=== PATIENT | female | born 1975 | race Caucasian/White ===

== ENCOUNTER 2017-12-14 14:25 | Emergency (ER) | payer MEDICAID, SELFPAY ==
--- NOTE | 2017-12-14 11:31 | EKG12_ITS ---
Test Reason : Blood Pressure : / mmHG Vent. Rate : 072 BPM Atrial Rate : 072 BPM P-R Int : 136 ms QRS Dur : 082 ms QT Int : 384 ms P-R-T Axes : 051 058 044 degrees QTc Int : 420 ms Normal sinus rhythm Normal ECG Reconfirmed by CARITO GUTIERRES, SOPHIE ([id number]), field map editor CHERIE CHAVEZ ([id number]) on 02/16/2018 11:00:54 AM Referred By: Vignesh Crum Confirmed By:SOPHIE ARZATE MD
--- NOTE | 2017-12-14 14:25 | DT_ITS ---
This patient was seen during an EMR downtime December 13, 2017 - December 20, 2017. This patient may have a combination of paper and electronic documentation or all paper documentation. All documentation is viewable within the e-chart portion of [facility] for each patient visit.
--- NOTE | 2017-12-14 16:10 | CT_ITS ---
STUDY: CT BRAIN WITHOUT CONTRAST REASON FOR EXAM: Female, 42 years old. Syncope. RADIATION DOSAGE (If Supplied By Facility): CTDIvol = ( 44.99 ) mGy, DLP = ( 748.30 ) mGycm TECHNIQUE: Transaxial CT imaging of the brain was performed without administration of intravenous contrast material. Individualized dose optimization techniques were used for this CT. COMPARISON: None. FINDINGS: Normal soft tissue structures. Normal calvarium. Normal size ventricles and extra-axial spaces for the patient's age. Normal white matter tracts of the cerebral hemispheres. Normal basal ganglia and thalami. Normal brainstem. Normal cerebellum. There is no intracranial hemorrhage. There are no findings of an acute ischemic infarction. Normal visualized paranasal sinuses. CT/Brain/Head without Contrast IMPRESSION: Normal unenhanced CT scan of the brain. No acute findings in the brain. Electronically Signed: Chris Padilla, at 0:13 EDT Tel , Service support ,
--- NOTE | 2017-12-14 16:30 | RAD_ITS ---
STUDY: X-RAY CHEST REASON FOR EXAM: Female, 42 years old. Syncope, headache, abdominal pain TECHNIQUE: PA and lateral views of the chest. COMPARISON: 09/08/2016 FINDINGS: The lungs are clear and expanded. There is no demonstrated pleural abnormality. Normal size heart. Normal mediastinum and erick. Normal visualized pulmonary arteries. Normal visualized aortic arch and descending thoracic aorta. Normal visualized thoracic spine. Normal visualized ribs, clavicles, and shoulders. There is no demonstrated abnormality of the visualized soft tissue structures of the upper abdomen. RAD/Chest PA and Lateral IMPRESSION: Normal x-ray examination of the chest. Electronically Signed: Deandre Baez DO at 9:38 EDT Tel , Service support ,
[2017-12-16 18:28] LABS: Bacteria 0 SEEN /hpf (None Seen); Color, Urine Yellow (Yellow); Glucose, Dipstick Normal (Normal); Ketone-Dipstick Negative (Negative); Leukocyte Esterase-Dipstick Negative /ul (Negative); Mucous, Urine 0 SEEN /hpf (<or=2+); Nitrite-Dipstick Negative (Negative); Occult Blood-Urine Negative /ul (Negative); Protein-Dipstick Negative (Negative); Red Blood Cells-Urine 0 SEEN /hpf (0-5); Specific Gravity, Urine 1.005 (1.002-1.030); Squamous Epithelial Cells - UA 5-10 SEEN /hpf (5-10); Urine Bilirubin Dipstick Negative (Negative); Urine Clarity Clear (Clear); Urine Urobilinogen Normal (Normal); White Blood Cells 0 SEEN /hpf (0-5)
[2017-12-17 09:30] LABS: Anion Gap 6 (5-15); BUN 7 mg/dL (7-18); BUN/Creat Ratio 10.4 RATIO (10-20); Calcium,Total 8.7 mg/dL (8.5-10.1); Chloride 108 mmol/L (98-107); Creatinine, Serum 0.67 mg/dL (0.55-1.02); EST Glomerular Filtration Rate 103 mL/min (>60); Est Glom Filt Rate - Afr Amer 125 mL/min (>60); Glucose 121 mg/dL (74-106); Lactic Acid 1.7 mmol/L (0.4-2.0); Potassium 4.1 mmol/L (3.5-5.1); Sodium Level 140 mmol/L (136-145)
[2017-12-17 11:11] LABS: Hematocrit 34.2 % (37-47); Hemoglobin 10.6 g/dl (12.0-15.0); Mean Corpuscular Hgb 25.1 pg (27.0-32.0); Red Blood Count 4.22 M/mm3 (4.2-5.4)
[2017-12-17 11:11] LABS: Internal QC Validated? YES +Cl - CLEAR BKGD; Pregnancy, Urine Negative Negative
[2017-12-17 11:12] LABS: Basophil% 0.3 % (0-1); Eosinophils% 0.9 % (0-5); Lymphocyte # 1.55 X10^3/ul (4.0); Lymphocyte % 22.1 % (19-41); Mean Platelet Vol. 10.3 fl (6.2-12.0); Monocyte% 5.6 % (0-10); Neutrophil # 4.98 X10^3/uL (2.7-7.7); POSITIVE COUNT NO; POSITIVE DIFFERENTIAL NO; POSITIVE MORPHOLOGY NO; Platelet Count 355 K/mm3 (150-450); RBC Distribution Width CV 15.4 % (11.6-14.6); RBC Distribution Width SD 45.2 fl (35.1-43.9)
[2017-12-17 11:13] LABS: Absolute Lymphocyte Count 1.55 X10^3/ul (0.83-4.51); Basophil# 0.02 X10^3/uL; Eosinophil# 0.06 X10^3/uL; Monocyte# 0.39 X10^3/uL
== END 2017-12-14 17:50 | disposition home or self-care (01) ==
LOC: ED 12-16 07:31
PROVIDERS: Emergency Provider Emergency Medicine; Family Provider Family Medicine Geriatric Medicine; PCP Family Medicine Geriatric Medicine
DX: R55 Syncope and collapse (principal); M79.7 Fibromyalgia; G25.81 Restless legs syndrome; Z79.899 Other long term (current) drug therapy; Z87.891 Personal history of nicotine dependence
CPT/HCPCS: 36415; 70450; 71046; 80048; 81001; 81025; 83605; 84484; 85025; 93005; 96360; 99284; J7030; A4216

== ENCOUNTER 2018-05-08 17:20 | Emergency (ER) | payer MEDICAID, SELFPAY ==
[2018-05-08 17:21] VITALS: BP 138/91; PULSE 81; RESP 16; TEMP 36.9; O2SAT 100; BMI 33.3
--- NOTE | 2018-05-08 17:43 | ED.VISSUMM ---
- ER Visit Summary Date of Service: 05/08/18 Chief Complaint: Dental pain History of Present Illness: The patient is a 43 F who presents with right upper dental and facial pain that has been getting progressively worse over the past week. Patient states the pain is throbbing. Patient states the pain is over the right upper molar area. Patient admits to subjective fevers. Patient admits to some jaw swelling. Patient admits to hot and cold sensitivity. Patient also admits to a mild headache. Patient admits to some nausea but denies any vomiting. Patient also states she has had recent cough and upper respiratory congestion. Patient states her children have had similar upper respiratory symptoms. Patient admits to some right ear pain and a sore throat. Patient states she also feels like she is getting a vaginal yeast infection. Patient denies any dysuria. Patient denies any discharge. Patient also states she feels like she is constipated. Physical Examination: Vital signs are stable. Patient is afebrile. Patient is in no acute distress. Oral mucosa is pink and moist. There is large dental carry over the right upper first molar. There is gingival edema around this tooth. There is no fluctuance or evidence of abscess. Oropharynx is clear. Airway is patent. Tympanic membranes are clear bilaterally. Neck is supple. Trachea is midline. There is no JVD noted. There is no sublingual edema noted. Heart was regular rate and rhythm. Lungs are clear and equal bilaterally. Abdomen is soft. There is no tenderness. Emergency Department Course and Treatment: Patient has a dental infection. Patient was given a prescription for clindamycin. Patient was also given a prescription for Diflucan but was instructed to wait until she completes the clindamycin prescription to take it since she will likely develop a vaginal candidiasis after completing the clindamycin. Patient was instructed to take inax-oaa-vloyjvc fiber supplements and stool softeners as needed for her constipation. Patient was instructed to follow-up with her dentist and primary care physician in 5-7 days. Patient understood and was agreeable with the plan. All questions were answered. Disposition: Discharge home Impression: 1. Infected dental caries 2. Upper respiratory infection 3. Constipation This note was generated with [employer] software. It may contain incorrect words, spelling, and punctuation that were not noted in review of the chart prior to signing ED Disposition - Plan for ED Patient: Disposition: Home or Assisted Living Chief Complaint: Dental Diagnosis: Infected dental caries, Upper respiratory infection with cough and congestion, Constipation Instructions: ED Abscess Dental, ED Constipation Prescriptions: Fluconazole [Diflucan] 150 mg PO X1 #1 tab Clindamycin HCl [Cleocin] 300 mg PO Q6H #40 cap Referrals: Lyle Leach Chi, MD [Primary Care Provider] -
--- NOTE | 2018-05-08 17:51 | ED.VISSUMM ---
- ER Visit Summary Date of Service: 05/08/18 Chief Complaint: [] History of Present Illness: The patient is a 43 F [] Physical Examination: [] Test Results: [] Emergency Department Course and Treatment: [] Treatment Plan: [] Disposition: [] Impression: [] This note was generated with [employer] dictation software. It may contain incorrect words, spelling, and punctuation that were not noted in review of the chart prior to signing ED Disposition - Plan for ED Patient: Disposition: Home or Assisted Living Chief Complaint: Dental Diagnosis: Infected dental caries, Upper respiratory infection with cough and congestion, Constipation Instructions: ED Constipation, ED Abscess Dental Prescriptions: Fluconazole [Diflucan] 150 mg PO X1 #1 tab Clindamycin HCl [Cleocin] 300 mg PO Q6H #40 cap Referrals: Lyle Leach Chi, MD [Primary Care Provider] -
[2018-05-08] MEDS: Clindamycin HCl 150 MG Capsule 300 MG PO (18:14)
[2018-05-08] MEDS: Naproxen 250 MG Tablet 500 MG PO (18:14)
== END 2018-05-08 18:15 | disposition home or self-care (01) ==
PROVIDERS: Emergency Provider Emergency Medicine; Family Provider Family Medicine Geriatric Medicine; PCP Family Medicine Geriatric Medicine
DX: K02.9 Dental caries, unspecified (principal); J06.9 Acute upper respiratory infection, unspecified; K59.00 Constipation, unspecified; K21.9 Gastro-esophageal reflux disease without esophagitis; M79.7 Fibromyalgia
CPT/HCPCS: 99283

== ENCOUNTER 2018-11-17 17:07 | Emergency (ER) | payer MEDICAID, SELFPAY ==
[2018-11-17 17:08] VITALS: BP 121/84; PULSE 86; RESP 15; TEMP 36.8; O2SAT 98; BMI 29.7
--- NOTE | 2018-11-17 17:40 | ED.VISSUMM ---
- ER Visit Summary Date of Service: 11/17/18 Chief Complaint: URI History of Present Illness: The patient is a 43 F presenting with URI symptoms. Patient states this started on Wednesday. She states initially she felt like she had seasonal allergies. She has had cough, runny nose. She developed a sore throat. She has mild painful swallowing but no difficulty swallowing. She has tried honey cough syrup at home. She denies fever. Denies chest pain or shortness of breath. Denies other complaints. Physical Examination: Vitals are stable. Patient is afebrile. Alert no acute distress. HEENT exam is unremarkable. TMs normal. Pharynx is normal. No pharyngeal erythema or exudate. Uvula is midline. Neck is supple. No meningismus Lungs are clear and equal bilaterally. Heart is regular rate and rhythm. Abdomen is soft nontender nondistended. Extremities are unremarkable. Skin is warm and dry. No rash Remainder of exam is unremarkable. Emergency Department Course and Treatment: Patient is advised this is likely viral syndrome. She will follow-up with her primary care physician. Advised return to ED for worsening complaints. Disposition: Discharge home Impression: URI This note was generated with [employer] dictation software. It may contain incorrect words, spelling, and punctuation that were not noted in review of the chart prior to signing ED Disposition - Plan for ED Patient: Disposition: Home or Assisted Living Instructions: ED Upper Resp Infec No Abx Tx
--- NOTE | 2018-11-17 17:42 | ED.DEP ---
ED Disposition - Plan for ED Patient: Instructions: ED Upper Resp Infec No Abx Tx
[2018-11-17 18:28] VITALS: BP 117/83; PULSE 87; RESP 16; O2SAT 99
== END 2018-11-17 18:28 | disposition home or self-care (01) ==
LOC: ED 18:08
PROVIDERS: Emergency Provider Emergency Medicine
DX: J06.9 Acute upper respiratory infection, unspecified (principal)
CPT/HCPCS: 99282

== ENCOUNTER 2019-01-07 12:13 | Emergency (ER) | payer MEDICAID, SELFPAY ==
[2019-01-07 12:14] VITALS: BP 126/79; PULSE 85; RESP 18; TEMP 36.4; O2SAT 99; BMI 29.1
--- NOTE | 2019-01-07 12:34 | CT_ITS ---
STUDY: CT ABDOMEN AND PELVIS WITHOUT CONTRAST REASON FOR EXAM: Female, 43 years old. Abdominal pain. RADIATION DOSAGE (If Supplied By Facility): CTDIvol = ( 10.02 ) mGy, DLP = ( 503.05 ) mGycm TECHNIQUE: Transaxial images were obtained from the dome of the diaphragm to the symphysis pubis without oral contrast, and without intravenous contrast. Sagittal and coronal images were reconstructed. Individualized dose optimization techniques were used for this CT. COMPARISON: None. FINDINGS: The visualized lung bases are unremarkable. The visualized portions of the heart are within normal limits. The liver is borderline in size. No focal lesion is definitely identified on this noncontrast examination. The gallbladder is contracted. Normal spleen. Normal pancreas. Normal bilateral adrenal glands. Normal right kidney. There is a small hyperdense nodule in the posterior aspect of the left kidney measuring about 9 mm which may represent hyperdense cyst. Correlation with ultrasound is recommended. There is a small hiatal hernia. Normal small intestine. There is thickening of the descending colon probably due to underdistention. Colitis is less likely. There is diverticulosis of the sigmoid colon. There is no evidence of acute diverticulitis. There are surgical clips in the region of the appendix consistent with a prior appendectomy. Normal abdominal aorta. Normal inferior vena cava. Normal retroperitoneum. Normal urinary bladder. There is a 3 cm left adnexal cyst. The uterus is enlarged. The uterus and ovaries are better evaluated by ultrasound. There is a small umbilical hernia containing fat. Normal osseous structures. CT/Abdomen/Pelvis without Cont IMPRESSION: 1. No evidence of urinary tract stones or hydronephrosis. 2. Small hyperdense nodule in the left kidney which may represent hyperdense cyst. Correlation with ultrasound is recommended. 3. Thickening of the descending colon probably due to underdistention. Colitis is less likely. 4. Diverticulosis without evidence of acute diverticulitis. 5. Status post appendectomy. Electronically Signed: [place] MD at 14:05 EDT Tel , Service support ,
[2019-01-07 12:39] LABS: Bacteria 0 SEEN /hpf (None Seen); Mucous, Urine 0 SEEN /hpf (<or=2+); Red Blood Cells-Urine 0 SEEN /hpf (0-5); White Blood Cells 0 SEEN /hpf (0-5)
[2019-01-07 12:40] LABS: Color, Urine Straw (Yellow); Glucose, Dipstick Normal (Normal); Ketone-Dipstick Negative (Negative); Leukocyte Esterase-Dipstick Negative /ul (Negative); Nitrite-Dipstick Negative (Negative); Occult Blood-Urine Negative /ul (Negative); Protein-Dipstick Negative (Negative); Specific Gravity, Urine 1.005 (1.002-1.030); Urine Bilirubin Dipstick Negative (Negative); Urine Clarity Clear (Clear); Urine Urobilinogen Normal (Normal)
[2019-01-07] MEDS: Ketorolac 30 MG/ML Syringe IV (12:45)
[2019-01-07] MEDS: Ondansetron 4 MG/2 ML Vial IV (12:45)
[2019-01-07] MEDS: 0.9% Normal Saline 1,000 ML 125 ML IV (12:45)
[2019-01-07] MEDS: Morphine 4 MG/ML Syringe IV (12:45)
[2019-01-07 12:47] LABS: Squamous Epithelial Cells - UA 0-5 SEEN /hpf (5-10)
--- NOTE | 2019-01-07 13:16 | ED.VISSUMM ---
- ER Visit Summary Date of Service: 01/07/19 Chief Complaint: Abdominal pain] History of Present Illness: The patient is a 43 F [present to the ER with abdominal pain at around 4 AM. Patient states it came on rather suddenly. Patient had a sensation of needing to have a bowel movement however she was unable. Patient denies any fevers. Patient states that she one point got very hot and sweaty as well as nauseated. Patient did vomit once. Patient has kind of a diffuse pain to the lower abdomen and also into the back mostly on the left side. Patient denies any dysuria however she has had some mild frequency. Patient does not believe that she is . Patient has had prior appendectomy. Patient currently rates her pain as a 10 out of 10. At one point she felt like her pain had resolved however when she woke up she felt like the pain became severe once again.] Physical Examination: [HEENT-PERRLA, EOMI. Cranial nerves II through XII grossly intact. TMs clear. Mucous membranes moist. No adenopathy. Cardiovascular-regular rate and rhythm without murmur or ectopy Lungs-clear to auscultation, chest wall stable without crepitus or subcu emphysema Abdomen-normoactive bowel sounds, soft. Patient has tenderness over the suprapubic region. There is no rebound, rigidity, cranial signs. She has some mild CVA tenderness on the left. No masses palpated. Extremities-intact ?4, normal range of motion, normal pulses, atraumatic] Test Results: [Urinalysis obtained was normal. n CBC with differential was normal. Chemistries were normal. hCG was negative. CT scan of the abdomen pelvis was read by radiology as no evidence of urinary tract stone or hydronephrosis. Small hyperdense nodule left kidney which may represent hyperdense cyst. Thickening of descending colon probably due to underdistention, colitis less likely. Diverticulosis without evidence of acute diverticulitis. And patient was noted to be status post appendectomy. Patient also noted to have a 3 cm left adnexal cyst. The uterus was enlarged.] Emergency Department Course and Treatment: [This point patient had received Toradol as well as Zofran 4 mg of morphine. Her pain mostly resolved and she is quite comfortable. On repeat examination patient has no tenderness over the left lower quadrant. Minimal discomfort over the right lower quadrant. There is no rebound, rigidity, hernial signs.] Treatment Plan: [Will be given a prescription for few [place]. Patient to follow-up with her primary care physician who I will refer her to for no doc. Also patient to follow-up with [facility]. Patient advised to return if fever, vomiting, or condition worsen anyway.] Disposition: [Discharged home in stable condition.] Impression: [Abdominal pain-etiology uncertain] This note was generated with [employer] dictation software. It may contain incorrect words, spelling, and punctuation that were not noted in review of the chart prior to signing ED Disposition - Plan for ED Patient: Referrals: Care Physician,No Primary [Primary Care Provider] -
[2019-01-07 13:19] LABS: Absolute Lymphocyte Count 1.73 X10^3/ul (0.83-4.51); Absolute Neutrophil Count 7.4 X10^3/uL (2.0-7.7); Basophil# 0.01 X10^3/uL; Basophil% 0.1 % (0-1); Eosinophil# 0.13 X10^3/uL; Eosinophils% 1.3 % (0-5); Hematocrit 35.8 % (37-47); Hemoglobin 11.2 g/dl (12.0-15.0); Lymphocyte # 1.73 X10^3/ul (4.0); Lymphocyte % 17.2 % (19-41); Mean Corp Hgb Conc 31.3 g/gl (32-36); Mean Corpuscular Hgb 25.3 pg (27.0-32.0); Mean Platelet Vol. 10.1 fl (6.2-12.0); Monocyte# 0.81 X10^3/uL; Neutrophil # 7.37 X10^3/uL (2.7-7.7); Neutrophil % 73.2 % (47-70); POSITIVE COUNT NO; POSITIVE DIFFERENTIAL NO; POSITIVE MORPHOLOGY NO; Platelet Count 344 K/mm3 (150-450); RBC Distribution Width SD 47.8 fl (35.1-43.9); Red Blood Count 4.42 M/mm3 (4.2-5.4); White Blood Count 10.1 K/mm3 (4.4-11.0)
[2019-01-07 13:27] LABS: Internal QC Validated? YES +Cl - CLEAR BKGD; Pregnancy, Serum, hCG Quali. NEGATIVE Negative
[2019-01-07 13:34] LABS: Anion Gap 8 (5-15); BUN 10 mg/dL (7-18); BUN/Creat Ratio 13.5 RATIO (10-20); Calcium,Total 8.8 mg/dL (8.5-10.1); Chloride 107 mmol/L (98-107); Creatinine, Serum 0.74 mg/dL (0.55-1.02); EST Glomerular Filtration Rate 91 mL/min (>60); Est Glom Filt Rate - Afr Amer 110 mL/min (>60); Estimated Creatinine Clearance 88.21 ml/min; Glucose 94 mg/dL (74-106); Potassium 3.8 mmol/L (3.5-5.1); Sodium Level 142 mmol/L (136-145)
[2019-01-07 13:39] VITALS: BP 118/75; PULSE 89; RESP 14; O2SAT 98
--- NOTE | 2019-01-07 15:17 | ED.DEP ---
ED Disposition - Plan for ED Patient: Instructions: ABDOMINAL PAIN, Unknown Cause, (Female) Prescriptions: Hydrocodone Bitart/Apap 5-325 [[place] 5MG-325MG] 1 tab PO Q4H PRN PRN 2 Days #10 tab PRN Reason: Pain Prescription Printed Referrals: Care Physician,No Primary [Primary Care Provider] - Yvonne Ronquillo MD [STAFF PHYSICIAN] - 3-5 Days
[2019-01-07 15:21] VITALS: BP 115/70; PULSE 80; RESP 14; O2SAT 98
== END 2019-01-07 15:26 | disposition home or self-care (01) ==
PROVIDERS: Emergency Provider Emergency Medicine
DX: R10.30 Lower abdominal pain, unspecified (principal); R61 Generalized hyperhidrosis; R11.2 Nausea with vomiting, unspecified; R35.0 Frequency of micturition; N28.89 Other specified disorders of kidney and ureter; K57.30 Diverticulosis of large intestine without perforation or abscess without bleeding; N83.8 Other noninflammatory disorders of ovary, fallopian tube and broad ligament
CPT/HCPCS: 74176; 80048; 81001; 84703; 85025; 96361; 96374; 96375; 99283; J7030; J2405

== ENCOUNTER → 2019-02-22 | Outpatient (CLI) | payer MEDICAID, SELFPAY ==
--- NOTE | 2019-02-22 15:05 | US_ITS ---
STUDY: RENAL ULTRASOUND - COMPLETE REASON FOR EXAM: Female, 44 years old. Left renal hypodensity TECHNIQUE: Ultrasound evaluation of the kidneys was performed with real-time and static hussein-scale imaging. COMPARISON: None. FINDINGS: RIGHT KIDNEY: Normal location of the right kidney, which is normal in size. The right kidney measures 11.2 x 6.1 x 4.6 cm. There is a normal cortex of the right kidney. The renal cortex measures 1.4 cm. There is no right renal mass or cyst. There are no right renal calculi. There is no right hydronephrosis. DISTAL RIGHT URETER: There is non-visualization of the distal right ureter. There is no demonstrated right ureterovesical junction calculus. There is a visualized right ureteral jet. LEFT KIDNEY: Normal location of the left kidney, which is normal in size. The left kidney measures 11.7 x 4.9 x 5.7 cm. There is a normal cortex of the left kidney. The renal cortex measures 1.9 cm. There is a peripheral mid pole cyst measuring 1.0 x 0.8 x 0.8 cm. There are no left renal calculi. There is no left hydronephrosis. DISTAL LEFT URETER: There is non-visualization of the distal left ureter. There is no demonstrated left ureterovesical junction calculus. There is a visualized left ureteral jet. BLADDER: The distended urinary bladder has a volume of 89 ml. . There is a normal wall thickness of the distended urinary bladder. Bladder wall thickness is 3 mm. There is no demonstrated mass within the urinary bladder. There are no demonstrated bladder calculi. US/Kidney and Bladder IMPRESSION: Mid pole left renal cyst measuring 1.0 x 0.8 x 0.8 cm. The right kidney is normal. The bladder is unremarkable. Electronically Signed: Callum Bashir MD at 19:36 EDT , Service support ,
== END | disposition home or self-care (01) ==
LOC: US 15:03
PROVIDERS: Referring Provider Urology; Visit Provider Urology
DX: R93.49 Abnormal radiologic findings on diagnostic imaging of other urinary organs (principal)
CPT/HCPCS: 76770

== ENCOUNTER 2020-02-08 06:08 | Day surgery (SDC) | payer MEDICAID, SELFPAY ==
--- NOTE | 2020-01-26 13:11 | PCM.HP.BLA ---
History and Physical Date of Admission: 02/08/20 HPI: The patient is a 44 year old female presenting for pre-operative visit. She is scheduled for?TVH with bilateral salpingectomy, for?menorrhagia, submucosal uterine fibroids, dysmenorrhea, and adenomyosis on?02/08/20. ??Procedure discussed along with risks, benefits and complications. ?Other alternatives discussed for management. Consent form signed??Yes.? PAST MEDICAL HISTORY PAST MEDICAL HISTORY Diagnosis Date ? Cervical cancer (HCC) ? ? laser surgery ? Family history of colon cancer 06/07/2013 ? Fibromyalgia ? ? GERD (gastroesophageal reflux disease) 01/24/2013 ? Herpes simplex vulvovaginitis 10/26/2018 ? IBS (irritable bowel syndrome) ? ? Low back pain 08/16/2015 ? Mid back pain 08/16/2015 ? Migraine without aura 09/30/2006 ? Panic disorder without agoraphobia 09/30/2006 ? PTSD (post-traumatic stress disorder) 10/26/2018 ? RLS (restless legs syndrome) 10/26/2018 ? Vitamin D deficiency 03/2015 ? ? PAST SURGICAL HISTORY PAST SURGICAL HISTORY Procedure Laterality Date ? APPENDECTOMY ? 2012 ? umbilical hernia repair at same time ? COLONOSCOP W/ OR W/O BRSH SPEC ? 07/03/2013 ? Colonoscopy ? EGD W/O OR W/BRUSH/WASH ? 07/03/2013 ? EGD ? PAST SURGICAL HISTORY OF ? 07/2007 ? [place] tooth extraction x 4 ? REPAIR ING HERNIA,5+Y/O,REDUCIBL ? 1st year of life ? Bilat Hernia repair, inguinal ? SUCTION D & C ? 04/01/2011 ? [facility] ? SUCTION D & C ? 06/26/2011 ? [facility] ? ? CURRENT MEDICATIONS Current Outpatient Medications Medication Sig Dispense Refill ? tizanidine HCl (ZANAFLEX ORAL) Take by mouth. ? ? ? tranexamic acid (LYSTEDA) 650 mg tablet Take 2 tablets by mouth three times daily as needed (heavy menstrual bleeding) for up to 13 days. 30 tablet 0 ? acyclovir (ZOVIRAX) 400 mg tablet 1 TABLET EVERY 8 HOURS FOR 5 DAYS, BEGIN AT FIRST HINT OF OUTBREAK 15 tablet 3 ? SUMAtriptan (IMITREX) 50 mg tablet Take 1 tablet at the onset of migraine. If not resolved in 2 hours may repeat dose. Max dose in 24 hours: 2 tablets. 12 tablet 0 ? Cholecalciferol, Vitamin D3, 2,000 unit/drop drop Take 1 Drop by mouth once daily. ? ? ? miconazole nitrate (MONISTAT 7) 100 mg vaginal suppository Placed 1 vaginal suppository at bedtime every other night x 7 suppositories. (Patient not taking: Reported on 01/26/2020 ) 7 Suppository 0 ? ferrous gluconate 324 mg (37.5 mg iron) tablet Take 1 tablet by mouth every other day. (Patient not taking: Reported on 01/26/2020 ) 15 tablet 2 ? meloxicam (MOBIC) 15 mg tablet Take 1 tablet by mouth once daily. (Patient not taking: Reported on 01/26/2020 ) 30 tablet 3 ? No current facility-administered medications for this visit.? ? ALLERGIES:?Penicillins; Ceftin [Cefuroxime Axetil]; Celexa [Citalopram Hydrobromide]; Cymbalta [Duloxetine]; Effexor [Venlafaxine Analogues]; Flexeril [Cyclobenzaprine Hcl]; Lyrica [Pregabalin]; Neurontin [Gabapentin]; Paxil [Paroxetine Hcl]; Tricyclic Compounds; Zoloft [Sertraline Hcl] ? PERSONAL HISTORY:? SOCIAL HISTORY Social History ? Tobacco Use ? Smoking status: Former Smoker ? ? Packs/day: 1.00 ? ? Years: 15.00 ? ? Pack years: 15.00 ? ? Types: Cigarettes ? Smokeless tobacco: Never Used Substance Use Topics ? Alcohol use: No ? Drug use: No ? FAMILY HISTORY:? FAMILY HISTORY FAMILY HISTORY Problem Relation Age of Onset ? Cancer Father ?colon ca ? Colon Cancer Father ? ? Thyroid Mother ? ? Breast Cancer Mother ? ? Ischemic Heart Disease Mother 45 ? Hearing Loss Paternal Grandfather ? ? Heart Daughter ? ? Hypertension Son ? ? Prostate Cancer Child ? ? Thyroid Maternal Grandmother ? ? other (clotting disorder) Other ? ? Ischemic Heart Disease Maternal Aunt ? ? Ischemic Heart Disease Maternal Aunt ? ? REVIEW OF SYMPTOMS: GENERAL: denies fevers or chills ENDOCRINOLOGY: has not been on steroids Cardiology : denies palpitations or chest pain Respiratory: denies SOB or cough Hematology: denies history of prolonged bleeding or easy bruising or VTE Allergy: Denies history of personal or family history of allergy to anesthesia ? ? PHYSICAL EXAMINATION: ? VITALS:?Last menstrual period 11/17/2019. ? GENERAL:??The patient is well nourished, well hydrated in no acute distress. ?, The patient is oriented to time, place, and person. NECK:?Supple. No lynphadenopathy, normal thyroid, no thyromegaly. LUNGS:?Clear to auscultation bilaterally. no wheezes, rhonchi or rales HEART:?Regular rate and rhythm, Normal heart sounds and No murmurs or gallops GENITALIA:?Normal external genitalia, Urethral meatus normal, Bladder nontender, normal vagina and normal vaginal tone, normal cervix, normal uterus, size and consistency, normal adnexa without masses or tenderness and perineum WNL ? IMPRESSION:?Menorrhagia, dysmenorrhea, submucosal uterine fibroids, suspected adenomyosis ? PLAN:???The risks/benefits/alternatives and personal involved for the planned?total vaginal hysterectomy with bilateral salpingectomy?were reviewed with the patient. Her questions were answered to her satisfaction and she desires to proceed. ?Consent was signed. ?I reviewed with her postop instructions and expectations. ? ? I have reviewed and updated past medical and surgical history, medications and allergies. This history and physical was completed in my office on 01/26/2020. Procedure Criteria Procedure Type: Elective COVID Risk Discussion: The surgeon/proceduralist and patient have discussed in detail the risk of exposure to and/or potential harm posed by the COVID-19 virus with having a surgery/procedure at this time versus the risk of delaying the surgery/procedure. It is not possible to know either the risk of delaying the surgery or procedure or chance of getting an infection with perfect accuracy, but a joint decision was made between the patient and the surgeon/proceduralist to proceed at this time with the scheduled surgery/procedure as indicated on the consent form.
[2020-02-08] VITALS (15 sets, daily range): BP systolic 89–134; BP diastolic 57–81; PULSE 68–86; RESP 16–18; TEMP 36.2–37.1; O2SAT 93–100; BMI 28.8
--- NOTE | 2020-02-08 | HYST_PTH ---
PATIENT: ALON FAIRCHILD LOC: [facility] [place] U#:[id number] AGE/SX: 45/F ROOM: RE02/08/[address]: Dr. Vicky Brambila MD : 1975 BED: DIS: 02/08/2020 SPEC #: [id number] RECD: 02/08/20 09:21 STATUS: MCKENNA HOLLIS #: [id number] GLADIS: 02/08/20 00:[address]: Vicky Brambila DEPT: SURGICAL PATHOLOGY RECD BY: Patrice Duffy ENTERED: 02/08/20 12:02 SP TYPE: HYSTERECT OTHR DR: No Primary Care Phys Tissues: Uterus, NOS Procedures: Surgery Specimen Level V HEADER OPERATION: ERAS, vaginal hysterectomy, salpingectomy PRE-OP DIAGNOSIS: Menorrhagia, dysmenorrhea, submucosal uterine fibroids, suspected adenomyosis TISSUE SUBMITTED: Uterus, cervix, bilateral fallopian tubes MICROSCOPIC DIAGNOSIS Uterus, hysterectomy: Cervix - nabothian cysts, squamous metaplasia and mild chronic inflammation. Endometrium - secretory endometrium. Myometrium - leiomyomas and adenomyosis. Right and left fallopian tubes - benign paratubal cysts. AM:estee 02/09/20 MICROSCOPIC DESCRIPTION Slides are reviewed. GROSS DESCRIPTION Received in fixative is one container labeled with the patient's name and designated uterus. The specimen consists of a uterus with attached cervix and detached right and left fallopian tubes. The uterus with cervix measures 9.5 x 7 x 3.5 cm and weighs 167 gm. The ectocervix is oval in contour. The endocervical canal measures 3.5 cm in length and is grossly unremarkable. The triangular endometrial cavity measures 3.5 x 3.5 cm. The reddish-sears endometrium measures up to 0.2 cm in thickness. Serial sections of the myometrial reveal two firm, rubbery nodules ranging in size from 0.8 cm to 3.3 cm. The nodules are intramural and submucosal in location. The cut surfaces reveal rubbery, whorled appearances and consistent with leiomyomas. The right and left fallopian tubes are similar in appearance with average length of 3.5 cm and average diameters of 0.6 cm. One fallopian tube contains two paratubal cysts containing clear fluid and ranging in size from 0.5 to 1.2 cm. Control Clerk Head sections are submitted as follows: 1 - anterior cervix, 2 - posterior cervix, 3 & 4 - anterior uterine wall, 5 & 6 - posterior uterine wall, 7 & 8 - submucosal leiomyoma, 9 - myometrial leiomyoma, 10 - one fallopian tube and paratubal cyst, 11 - the other fallopian tube. / AM:estee 02/08/20 TC:1 CPT: 51159
[2020-02-08 06:28] LABS: Internal QC Validated? YES +Cl - CLEAR BKGD; Pregnancy, Urine Negative Negative
[2020-02-08] MEDS: Scopolamine 1mg/72hr Patch 1 PATCH TRANSDERM. (06:38)
[2020-02-08] MEDS: Acetaminophen 500 MG Tablet 1000 MG PO (06:38)
[2020-02-08] MEDS: Gabapentin 600 MG Tablet PO (06:39)
[2020-02-08] MEDS: Enoxaparin 40 MG/0.4 ML Syringe SC (06:44)
[2020-02-08] MEDS: Lactated Ringers 1,000 ML 40 ML IV ×2 (06:49→10:00)
[2020-02-08 07:05] LABS: Bedside Glucose 97 mg/dL (70-110)
[2020-02-08] MEDS: dexAMETHasone 10 MG/ML Vial 8 MG IV (07:45)
--- NOTE | 2020-02-08 09:04 | OP.PCM_ITS ---
Report of Operation Date of Procedure: 02/08/20 Pre-Operative Diagnosis: menorrhagia, dysmenorrhea Post-Operative Diagnosis: same Surgery/Procedure Performed:: Total vaginal hysterectomy with bilateral salpingectomy and Victor's culdoplasty manager payroll: Cheryl Lerma manager payroll: Chris Schuler Type of Anesthesia:: General Anesthesiologist: Perry Walls Special Medications: none Specimen's removed: uterus, cervix bilateral fallopian tubes Drains: none Estimated Blood Loss (mL): 40 Fluids Replaced: 1000 cc Description of Procedure: The patient was taken to the operating room where she was prepped and draped in the normal sterile fashion in the dorsal lithotomy position. A weighted speculum was placed in the vagina and the anterior lip of the cervix was grasped with a Herber clamp. The vaginal epithelium was infiltrated circumferentially around the cervix with 1% Xylocaine solution. An incision was made around the entire cervix with a scalpel and the vaginal epithelium was dissected back with blunt and sharp dissection. The anterior colpotomy incision was made sharply. Entry into the anterior cul-de-sac was confirmed by visualization of the uterine fundus and bowel behind the uterus. The posterior colpotomy was made with the Vera scissors. The posterior peritoneum was secured to the posterior vaginal cuff with an [id number] 0 Vicryl suture. The Raheem retractor was placed in the posterior colpotomy incision. The uterosacral ligaments were clamped with Robin clamps transected and suture ligated on both sides and excellent hemostasis of the pedicles was noted. The cardinal ligaments were clamped transected and suture ligated. The remainder of the cardinal ligament with the uterine arteries was clamped transected and suture ligated. The round ligaments were clamped, transected and suture- ligated. The utero-ovarian ligaments and tubes were clamped transected and suture ligated. The uterus was brought out through the colpotomy incision intact. The left ovary and tube appeared normal. A Johanne clamp was placed across the left tube and it was transected with the Metzenbaum scissors and suture ligated. The same procedure was performed on the contralateral side. The pedicles were all examined again and found to be hemostatic. At this point a Victor's culdoplasty was done with 2-0 PDS suture. Entering the posterior vaginal cuff the peritoneum was secured reefed across the peritoneum to the right uterosacral ligament, back across the peritoneum to the left uterosacral ligament and back out through the posterior vaginal wall. The vaginal cuff was then reapproximated horizontally with interrupted 0 Vicryl [id number] sutures. Victor suture was tied down. The vaginal cuff was hemostatic and excellent support was noted. The Santamaria was left to straight drain. The vaginal sweep was completed by me. All sponge lap and needle counts were correct. Patient was awakened and taken to the recovery room in stable condition. Grafts/Implants Used: none - Complications none - Admit VTE Documentation VTE Present on Admission: No VTE Mechan Device Prophylaxis: SCD's VTE Pharm Prophylaxis ordered?: No Reason prophylaxis not ordered:: Procedure Not Indicated
--- NOTE | 2020-02-08 09:10 | PCM.DC.VHY ---
Discharge Diet: No Restrictions Discharge Activity: Return to Normal Activity, May Not Drive - while taking narcotic pain medications and for at least 10 days, May Shower May shower in (days): 1 May resume sexual activity in: 6-8 weeks Call your doctor if your incision/area has: Continuous Slow Oozing, Sudden Increased Bleeding, Increased Pain/ Swelling, Increased Redness, Foul Smelling Discharge Call your doctor if you observe: Fever of 101 or Higher, Inability to urinate, Inability to have a bowel movement, Using more than one pad per hour Additional Instructions: Do not put anything in your vagina for at least 6 weeks or until cleared by my office Allergies/Adverse Reactions: Allergies Penicillins Allergy (Verified 02/08/20 06:25) Anaphylaxis sertraline HCl [From Zoloft] Adverse Reaction (Verified 02/08/20 06:25) HALLUCINATIONS AND VOMITING Medications to take at Discharge Meloxicam 15 mg PO PRN PRN 11/17/18 Famotidine [Pepcid] 40 mg PO DAILY 01/31/20 L.acidoph,Paracasei, B.lactis [Probiotic] 1 ea PO DAILY 01/31/20 Multivitamin [Daily Multiple Vitamin] 1 ea PO DAILY 01/31/20 Docusate Sodium [Colace] 100 mg PO BID PRN PRN 15 Days #30 cap 02/08/20 Oxycodone [Oxyir] 5 mg PO Q6H PRN PRN 7 Days #22 tablet 02/08/20 The following prescriptions were given: Docusate Sodium [Colace] 100 mg PO BID PRN PRN 15 Days #30 cap PRN Reason: Constipation Transmission Status: Pending to [id number] Oxycodone [Oxyir] 5 mg PO Q6H PRN PRN 7 Days #22 tablet PRN Reason: severe pain Transmission Status: Sent to [id number] Primary Care Physician: Care Physician,No Primary [Primary Care Provider] - Test Results: Test results from this visit will be discussed in further detail at your follow-up appointment, if applicable. Please Follow Up With: Vicky Brambila MD - [phone] When: My office for a postop visit in 1-2 weeks and 6 weeks or as needed
[2020-02-08] MEDS: HYDROcodone Bitartrate/Apap 5/325 Tablet PO (11:50)
[2020-02-08 12:38] LABS: Hematocrit 34.5 % (37-47); Hemoglobin 10.8 g/dL (12.0-15.0); Mean Corp Hgb Conc 31.3 g/dL (32-36); Mean Corpuscular Hgb 26.4 pg (27.0-32.0); Mean Corpuscular Volume 84.4 fL (81-99); Mean Platelet Vol. 10.3 fl (6.2-12.0); Platelet Count 267 K/mm3 (150-450); RBC Distribution Width CV 15.9 % (11.6-14.6); RBC Distribution Width SD 49.4 fl (35.1-43.9); Red Blood Count 4.09 M/mm3 (4.2-5.4); White Blood Count 12.6 K/mm3 (4.4-11.0)
== END 2020-02-08 14:52 | disposition home or self-care (01) ==
LOC: SDC 06:10 → AC 06:24
PROVIDERS: Anesthesiology; Referring Provider Obstetrics & Gynecology; Visit Provider Obstetrics & Gynecology
PROC: (CPT 58260; principal; 2020-02-08 07:10)
DX: N80.0 Endometriosis of uterus (principal); D25.0 Submucous leiomyoma of uterus; N83.8 Other noninflammatory disorders of ovary, fallopian tube and broad ligament; N92.0 Excessive and frequent menstruation with regular cycle; D64.9 Anemia, unspecified; Z11.59 Encounter for screening for other viral diseases; K21.9 Gastro-esophageal reflux disease without esophagitis; K58.9 Irritable bowel syndrome, unspecified; F43.10 Post-traumatic stress disorder, unspecified; G25.81 Restless legs syndrome; M79.7 Fibromyalgia; F41.9 Anxiety disorder, unspecified; F32.9 Major depressive disorder, single episode, unspecified; G43.909 Migraine, unspecified, not intractable, without status migrainosus; Z85.41 Personal history of malignant neoplasm of cervix uteri; Z79.899 Other long term (current) drug therapy; Z87.891 Personal history of nicotine dependence
CPT/HCPCS: 00944; 58270; 36415; 81025; 82962; 85027; 86850; 86900; 86901; 87635; 88307; G2023; J7120; J2405; U0003

== ENCOUNTER 2020-02-17 13:38 | Emergency (ER) | payer MEDICAID, SELFPAY ==
[2020-02-08 06:30] VITALS: BMI 28.8
[2020-02-17 13:40] VITALS: BP 123/73; PULSE 95; RESP 16; TEMP 37.4; O2SAT 96; BMI 28.3
--- NOTE | 2020-02-17 14:06 | CT_ITS ---
STUDY: CT ABDOMEN AND PELVIS WITH CONTRAST REASON FOR EXAM: Female, 45 years old. PELVIC PAIN RADIATION DOSAGE (If Supplied By Facility): CTDIvol = ( 13.21 ) mGy, DLP = ( 879.77 ) mGycm TECHNIQUE: Transaxial images were obtained from the dome of the diaphragm to the symphysis pubis with oral contrast. Oral and amp; IV Gastrografin and amp; 100mL Isovue-300 was administered. Sagittal and coronal images were reconstructed. Individualized dose optimization techniques were used for this CT. COMPARISON: CT of abdomen and pelvis dated JANUARY 07 2019. FINDINGS: The visualized lung bases are unremarkable. Normal liver. No intrahepatic biliary duct dilatation or liver mass. Normal gallbladder and extrahepatic biliary system. Normal spleen. Normal pancreas. Normal bilateral adrenal glands. Normal right kidney. Normal left kidney. No hydronephrosis or renal masses. No large stones. Normal visualized stomach. Normal small intestine. Multiple sigmoid diverticula are present with acute inflammation seen on the antimesenteric side of the mid sigmoid colon with haziness and pericolonic stranding compatible with acute diverticulitis. No abscess or perforation. The adjacent left ovary is also mildly inflamed due to direct contact with the inflamed portion of the sigmoid colon. The bilateral ovaries are otherwise normal in appearance with multiple follicles but no masses or abscess. The remaining proximal and transverse colonic loops are normal. The uterus is absent compatible or prior hysterectomy. No bowel dilatation or obstruction. There are surgical clips in the region of the appendix consistent with a prior appendectomy. Normal abdominal aorta. Normal inferior vena cava. Normal retroperitoneum. Normal urinary bladder. Normal abdominal wall. Essentially normal osseous structures. CT/Abdomen/Pelvis WITH Contrast IMPRESSION: 1. Acute mild sigmoid diverticulitis - Multiple sigmoid diverticula are present with acute inflammation seen on the antimesenteric side of the mid sigmoid colon with haziness and pericolonic stranding compatible with acute diverticulitis. No abscess or perforation. 2. The adjacent left ovary is also mildly inflamed due to direct contact with the inflamed portion of the sigmoid colon. The bilateral ovaries are otherwise normal in appearance with multiple follicles but no masses or abscess. Electronically Signed: Jeremy Martínez MD at 16:31 EDT , Service support ,
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
[2020-02-17] MEDS: HYDROmorphone 1 MG/ML Syringe IV ×2 (14:19→15:18)
[2020-02-17] MEDS: 0.9% Normal Saline 1,000 ML 1000 ML IV (14:19)
[2020-02-17] MEDS: Ondansetron 4 MG/2 ML Vial IV (14:20)
--- NOTE | 2020-02-17 14:20 | CM.ED ---
SOCIAL WORK Reason for Consult: No Primary Care Physician Met with patient and in room. Introduced role. Confirmed patient does not have primary care physician. provided with list of physicians. No questions or concerns with obtaining primary care voiced at this time. Flory Matias, DRAPERY AND UPHOLSTERY ESTIMATOR, REGULATORY AFFAIRS DIRECTOR
[2020-02-17 14:25] LABS: Absolute Lymphocyte Count 1.61 X10^3/uL (0.83-4.51); Absolute Neutrophil Count 9.6 X10^3/uL (2.0-7.7); Basophil# 0.03 X10^3/uL; Basophil% 0.2 % (0-1); Eosinophil# 0.14 X10^3/uL; Eosinophils% 1.1 % (0-5); Hematocrit 36.2 % (37-47); Hemoglobin 11.1 g/dL (12.0-15.0); Lymphocyte # 1.61 X10^3/ul (4.0); Lymphocyte % 12.8 % (19-41); Mean Corp Hgb Conc 30.7 g/dL (32-36); Mean Corpuscular Hgb 25.8 pg (27.0-32.0); Mean Corpuscular Volume 84.2 fL (81-99); Mean Platelet Vol. 10.2 fl (6.2-12.0); Monocyte# 1.13 X10^3/uL; NRBC Flagged by Analyzer 0 % (0-5); Neutrophil # 9.62 X10^3/uL (2.7-7.7); Neutrophil % 76.7 % (47-70); Platelet Count 336 K/mm3 (150-450); RBC Distribution Width CV 15.8 % (11.6-14.6); RBC Distribution Width SD 47.9 fl (35.1-43.9); White Blood Count 12.6 K/mm3 (4.4-11.0)
[2020-02-17 14:35] LABS: AST(SGOT) 13 U/L (15-37); Alanine Aminotransfer ALT/SGPT 24 U/L (13-56); Albumin, Serum 3.7 g/dL (3.2-5.0); Alkaline Phosphatase 89 U/L (45-117); Anion Gap 5 (5-15); BUN 9 mg/dL (7-18); BUN/Creat Ratio 12.1 RATIO (10-20); Calcium,Total 8.8 mg/dL (8.5-10.1); Chloride 106 mmol/L (98-107); Creatinine, Serum 0.74 mg/dL (0.55-1.02); EST Glomerular Filtration Rate 90 mL/min (>60); Est Glom Filt Rate - Afr Amer 108 mL/min (>60); Estimated Creatinine Clearance 86.39 ml/min; Globulin 3.6 g/dL (2.2-4.2); Glucose 100 mg/dL (74-106); Potassium 3.7 mmol/L (3.5-5.1); Protein, Total 7.3 g/dL (6.4-8.2); Sodium Level 138 mmol/L (136-145)
[2020-02-17 14:40] LABS: Lactic Acid 1.7 mmol/L (0.4-1.9)
[2020-02-17 14:49] LABS: Mucous, Urine 0 SEEN /hpf (<or=2+); Squamous Epithelial Cells - UA 0 SEEN /hpf (5-10)
[2020-02-17 14:50] VITALS: BP 143/101; PULSE 96; RESP 16; O2SAT 99
[2020-02-17 14:53] LABS: Color, Urine Yellow (Yellow); Glucose, Dipstick Normal (Normal); Ketone-Dipstick Negative (Negative); Leukocyte Esterase-Dipstick 100 /ul (Negative); Nitrite-Dipstick Negative (Negative); Occult Blood-Urine 10 /ul (Negative); Protein-Dipstick Negative (Negative); Specific Gravity, Urine 1.005 (1.002-1.030); Urine Bilirubin Dipstick Negative (Negative); Urine Clarity Clear (Clear); Urine Urobilinogen Normal (Normal)
--- NOTE | 2020-02-17 14:53 | ED.RN ---
APPROACHES DESK STATING THAT PAIN MEDICATION IS NOT EFFECTIVE, DR. FORTE MADE AWARE.
[2020-02-17 15:04] LABS: Bacteria 1+ /hpf (None Seen); Red Blood Cells-Urine 0-5 SEEN /hpf (0-5); White Blood Cells 5-10 SEEN /hpf (0-5)
[2020-02-17 15:18] VITALS: BP 125/85; PULSE 97; RESP 16; TEMP 36.8; O2SAT 98
[2020-02-17 15:19] VITALS: BP 125/82
[2020-02-17 16:11] VITALS: BP 132/84; PULSE 84; RESP 19; TEMP 37.2; O2SAT 96
[2020-02-17] MEDS: Morphine 4 MG/ML Syringe IV (16:32)
[2020-02-17 17:03] VITALS: BP 131/92; PULSE 79; RESP 15; TEMP 37.2; O2SAT 98
[2020-02-17] MEDS: metroNIDAZOLE 500 MG Tablet PO (17:34)
[2020-02-17] MEDS: Ciprofloxacin 500 MG Tablet PO (17:34)
== END 2020-02-17 17:48 | disposition home or self-care (01) ==
LOC: ED 14:15
PROVIDERS: Emergency Provider Emergency Medicine
DX: K57.32 Diverticulitis of large intestine without perforation or abscess without bleeding (principal); Z87.891 Personal history of nicotine dependence
CPT/HCPCS: 74177; 80053; 81001; 83605; 85025; 96361; 96374; 96375; 99284; J7030; Q9967; A4216; J2405

== ENCOUNTER → 2020-02-29 12:38 | Outpatient (CLI) | payer MEDICAID, SELFPAY ==
[2020-02-17 13:40] VITALS: BMI 28.3
[2020-02-29 15:28] LABS: Absolute Lymphocyte Count 1.79 X10^3/uL (0.83-4.51); Absolute Neutrophil Count 5.8 X10^3/uL (2.0-7.7); Basophil# 0.02 X10^3/uL; Basophil% 0.2 % (0-1); Eosinophil# 0.15 X10^3/uL; Eosinophils% 1.8 % (0-5); Hematocrit 38.4 % (37-47); Hemoglobin 11.8 g/dL (12.0-15.0); Lymphocyte # 1.79 X10^3/ul (4.0); Lymphocyte % 21.1 % (19-41); Mean Corp Hgb Conc 30.7 g/dL (32-36); Mean Corpuscular Hgb 26.2 pg (27.0-32.0); Mean Corpuscular Volume 85.3 fL (81-99); Mean Platelet Vol. 10.5 fl (6.2-12.0); Monocyte% 8.2 % (0-10); NRBC Flagged by Analyzer 0 % (0-5); Neutrophil # 5.81 X10^3/uL (2.7-7.7); Neutrophil % 68.5 % (47-70); Platelet Count 448 K/mm3 (150-450); RBC Distribution Width CV 16.8 % (11.6-14.6); RBC Distribution Width SD 51.8 fl (35.1-43.9); White Blood Count 8.5 K/mm3 (4.4-11.0)
[2020-02-29 15:39] LABS: ALB/GLOB Ratio 1.1 RATIO (0.9-2.4); AST(SGOT) 11 U/L (15-37); Alanine Aminotransfer ALT/SGPT 16 U/L (13-56); Alkaline Phosphatase 75 U/L (45-117); Anion Gap 3 (5-15); BUN 11 mg/dL (7-18); BUN/Creat Ratio 15.8 RATIO (10-20); Calcium,Total 8.9 mg/dL (8.5-10.1); Chloride 107 mmol/L (98-107); EST Glomerular Filtration Rate 97 mL/min (>60); Est Glom Filt Rate - Afr Amer 117 mL/min (>60); Globulin 3.7 g/dL (2.2-4.2); Glucose 90 mg/dL (74-106); Potassium 4.2 mmol/L (3.5-5.1); Protein, Total 7.7 g/dL (6.4-8.2); Sodium Level 139 mmol/L (136-145)
== END ==
PROVIDERS: Referring Provider Family Medicine; Visit Provider Family Medicine
DX: R10.30 Lower abdominal pain, unspecified (principal)
CPT/HCPCS: 36415; 80053; 85025

== ENCOUNTER → 2020-07-30 15:26 | Outpatient (CLI) | payer MEDICAID, SELFPAY ==
--- NOTE | 2020-07-30 15:30 | RAD_ITS ---
STUDY: X-RAY - RIGHT HAND REASON FOR EXAM: Female, 45 years old. right hand pain, lumps and swelling TECHNIQUE: 3 view(s) of the hand. COMPARISON: None. FINDINGS: Normal radiocarpal articulation. Normal distal radioulnar joint. Normal visualized carpal bones. Normal carpal articulations Normal carpometacarpal articulation of the thumb. Normal second through fifth carpometacarpal joints. Normal metacarpi. Normal joints. No visualized fracture. The soft tissue structures are unremarkable. RAD/Hand Min 3 Views IMPRESSION: Normal x-ray examination of the hand. Electronically Signed: Jeremy Martínez MD at 17:29 EST , Service support ,
[2020-07-30 18:11] LABS: Erythrocyte Sedimentation Rate 8 mm/hr (0-30)
[2020-07-30 18:17] LABS: CRP 4.58 mg/L (0.0-3.0); Rheumatoid Factor < 10.0 IU/mL (<15)
[2020-08-01 14:12] LABS: ASO Titer 306.5 IU/mL (0.0-200.0)
[2020-08-01 15:36] LABS: ANTINUCLEAR ANTIBODIES DIRECT Negative (Negative)
== END ==
PROVIDERS: PCP Family Medicine; Referring Provider Family Medicine; Visit Provider Family Medicine
DX: R22.9 Localized swelling, mass and lump, unspecified (principal); M79.89 Other specified soft tissue disorders
CPT/HCPCS: 36415; 73130; 85652; 86038; 86060; 86140; 86431

== ENCOUNTER → 2021-04-04 16:17 | Outpatient (CLI) | payer MEDICAID, SELFPAY ==
[2021-04-04 18:04] LABS: Amphetamine Urine VISTA NEGATIVE (<1000 ng/mL); Barbiturate Urine VISTA NEGATIVE (< 200 ng/mL); Benzodiazepine Urine VISTA NEGATIVE (< 200 ng/mL); Cocaine Urine VISTA NEGATIVE (< 300 ng/mL); Ecstacy Urine VISTA NEGATIVE (< 500 ng/mL); Methadone Urine VISTA NEGATIVE (< 300 ng/mL); PCP Urine VISTA NEGATIVE (< 25 ng/mL); THC Urine VISTA NEGATIVE (< 50 ng/mL); Vista UDS pH Range 6
== END ==
PROVIDERS: PCP Family Medicine; Visit Provider Anesthesiology Pain Medicine
DX: F11.20 Opioid dependence, uncomplicated (principal)
CPT/HCPCS: 80307

== ENCOUNTER 2021-06-05 19:45 | Emergency (ER) | payer MEDICAID, SELFPAY ==
[2021-06-05 19:46] VITALS: BP 130/87; PULSE 78; RESP 16; TEMP 36.4; O2SAT 98; BMI 29.7
--- NOTE | 2021-06-05 20:30 | EKG12_ITS ---
Test Reason : DYSRHYTHMIA Blood Pressure : / mmHG Vent. Rate : 077 BPM Atrial Rate : 077 BPM P-R Int : 120 ms QRS Dur : 084 ms QT Int : 382 ms P-R-T Axes : 066 072 058 degrees QTc Int : 432 ms Normal sinus rhythm Normal ECG Confirmed by CHIDI GUTIERRES, QUIANA ([id number]), television news video editor KEVIN TUTTLE ([id number]) on 06/06/2021 11:46:47 AM Referred By: INNA Confirmed By:QUIANA MURILLO MD
--- NOTE | 2021-06-05 20:37 | RAD_ITS ---
STUDY: X-RAY CHEST REASON FOR EXAM: Female, 46 years old. Near syncope. Palpitations shortness of breath and weakness and dizziness 2 days ago with difficulty speaking and fast fluttering eyes. Has not felt right sevenths. TECHNIQUE: Single AP portable view of the chest. COMPARISON: 12/14/2017. FINDINGS: The lungs are clear and expanded. There is no demonstrated pleural abnormality. Normal size heart. Normal mediastinum and erick. Normal visualized pulmonary arteries. Normal visualized aortic arch and descending thoracic aorta. Normal visualized thoracic spine. Normal visualized ribs, clavicles, and shoulders. There is no demonstrated abnormality of the visualized soft tissue structures of the upper abdomen. RAD/Chest 1 View (Portable) IMPRESSION: No acute cardiopulmonary disease or major interval change. Electronically Signed: Jeff Murray DO at 21:36 EST Tel [phone], Service support ,
--- NOTE | 2021-06-05 20:37 | CT_ITS ---
STUDY: CT BRAIN WITHOUT CONTRAST REASON FOR EXAM: Female, 46 years old. Dizziness. RADIATION DOSAGE (If Supplied By Facility): CTDIvol = ( 44.99 ) mGy, DLP = ( 829.85 ) mGycm TECHNIQUE: Transaxial CT imaging of the brain was performed without administration of intravenous contrast material. Individualized dose optimization techniques were used for this CT. COMPARISON: 12/15/2017. FINDINGS: Normal soft tissue structures. Normal calvarium. Normal size ventricles and extra-axial spaces for the patient''s age. Normal white matter tracts of the cerebral hemispheres. Normal basal ganglia and thalami. Normal brainstem. Normal cerebellum. There is no intracranial hemorrhage. There are no findings of an acute ischemic infarction. Normal visualized paranasal sinuses. CT/Brain/Head without Contrast IMPRESSION: Normal unenhanced CT scan of the brain. No major interval change. Electronically Signed: Jeff Murray DO at 22:06 EST Tel [phone], Service support ,
--- NOTE | 2021-06-05 20:44 | EDS_ITS ---
HPI History of Present Illness Chief Complaint: General Illness Narrative Narrative: 46-year-old female presenting for evaluation of palpitations. She states that 3 days ago she was standing at the kitchen sink making food with her daughter and she started to feel as if her eyes were blinking very fast and she felt lightheaded like she was going to faint. She did not. She states that this episode was fleeting. She states that she is been a little bit of a brain fog since but has been functional. Patient states that today she had a return of the episode of the palpitations while helping to make dinner and felt as if she was a little short of breath with during the palpitation. She did not have any chest pain. She states that her son and her both asked if she was doing okay. She said yes and ate dinner and she managed to make it through dinner. She has not had a return of the palpitations. She does have a history of anxiety and PTSD and states that some of this is similar but not all of it. Patient also has a history of dysrhythmia and has worn a Holter monitor which showed a dysrhythmia. She does not know what rhythm was seen. Patient denies any other cardiac history. Denies fever, chills, nausea, vomiting. No history of syncope. [facility] Home Medications L.acidoph, paracasei,B. lactis 1 ea PO DAILY 01/31/20 [History Last Taken Unknown] famotidine 40 mg PO DAILY PRN PRN 01/31/20 [History Last Taken Unknown] multivitamin 1 ea PO DAILY 01/31/20 [History Last Taken Unknown] ibuprofen 800 mg PO TID PRN PRN #60 tab 02/08/20 [Rx Last Taken Unknown] ciprofloxacin HCl 500 mg PO BID #20 tab 02/17/20 [Rx Last Taken Unknown] docusate sodium 100 mg PO DAILY #20 cap 02/17/20 [Rx Last Taken Unknown] fluconazole 150 mg PO X1 #1 tab 02/17/20 [Rx Last Taken Unknown] metronidazole 500 mg PO Q6H #40 tab 02/17/20 [Rx Last Taken Unknown] naproxen 500 mg PO BID #14 tab 02/17/20 [Rx Last Taken Unknown] ondansetron 4 mg PO Q8H PRN PRN #10 tab 02/17/20 [Rx Last Taken Unknown] oxycodone 5 mg PO Q6H PRN PRN 02/17/20 [History Last Taken Unknown] phenazopyridine 200 mg PO TID #10 tab 02/17/20 [Rx Last Taken Unknown] Allergy/AdvReac Type Severity Reaction Status Date / Time Penicillins Allergy Anaphylaxis Verified 06/05/21 19:48 sertraline HCl [From Zoloft] AdvReac HALLUCINATIONS Verified 06/05/21 19:48 AND VOMITING Surgical History H/O: hysterectomy Social History Smoking Status: Former smoker ROS ROS ED Constitutional Constitutional ED: Denies chills, fever(s) or subjective Eyes Eyes: Denies blurry vision or diplopia ENT ENT ED: Denies rhinorrhea or sore throat Cardiovascular Cardiovascular: Reports palpitations and racing heartbeat; Denies chest pain Respiratory/Chest Respiratory/Chest: Reports dyspnea; Denies cough, dyspnea on exertion or sputum Gastrointestinal Gastrointestinal: Denies abdominal pain, nausea or vomiting Genitourinary Genitourinary ED: Denies dysuria or hematuria Musculoskeletal Musculoskeletal: Denies arthralgias, myalgias or neck pain Integumentary Denies rash Neurologic Neurologic: Denies headache(s) or paresthesias Psychiatric Psychiatric: Reports anxiety; Denies depression EXAM Physical Exam Const Vital Signs: 06/05/21 19:46 06/05/21 21:05 06/05/21 21:46 Temperature 97.5 F L Temperature Source Temporal Pulse Rate 78 81 Pulse Rate [Lying] Pulse Rate [Sitting] Pulse Rate [Standing] Respiratory Rate 16 16 Respiratory Effort Normal Non-Labored Respiratory Pattern Normal Blood Pressure 130/87 H 126/86 H Blood Pressure [Lying] Blood Pressure [Sitting] Blood Pressure [Standing] Blood Pressure Mean 101 99 Blood Pressure Mean [Lying] Blood Pressure Mean [Sitting] Blood Pressure Mean [Standing] Pulse Ox 98 97 Oxygen Delivery Method Room Air Room Air 06/05/21 21:48 Temperature Temperature Source Pulse Rate Pulse Rate [Lying] 74 Pulse Rate [Sitting] 78 Pulse Rate [Standing] 71 Respiratory Rate Respiratory Effort Respiratory Pattern Blood Pressure Blood Pressure [Lying] 124/79 H Blood Pressure [Sitting] 128/88 H Blood Pressure [Standing] 137/77 H Blood Pressure Mean Blood Pressure Mean [Lying] 94 Blood Pressure Mean [Sitting] 101 Blood Pressure Mean [Standing] 97 Pulse Ox Oxygen Delivery Method Positive well nourished General Appearance ED: NAD; Negative for pallor HEENT Negative for trauma Eyes PERRL and EOMs intact bilaterally General Eye ED: Negative for pale conjunctiva or scleral icterus Neck no lymphadenopathy, supple and no JVD Chest Wall inspection of chest normal Resp normal respiratory effort and clear to auscultation bilaterally Effort and Inspection: Negative for pain with movement Auscultation: Negative for rales or rhonchi Cardio regular rate, regular rhythm and no murmurs GI normal to inspection, nondistended, normoactive bowel sounds Neuro oriented x3, CN's II-XII intact bilaterally and no sensory deficits noted Sensorium / Orientation: alert Motor Exam: strength 5/5 throughout Psych mental status grossly normal Skin General Skin Exam: Negative for jaundice or pallor MDM MDM MDM Narrative Medical decision making narrative: Due to patient's complaint I did obtain an EKG which on my interpretation is a normal sinus rhythm with a ventricular rate of 77 bpm without sign of ischemic change. There is no dysrhythmia. Chest x- ray my interpretation shows no acute cardiopulmonary process per radiologist read. CBC is normal. CMP shows a slight hypokalemia of 3.3. Otherwise LFTs are normal. Urinalysis negative for infection. I obtained a CT brain as the patient states that she had a long bleeding episode and felt like she was near syncopal and during this time she had trouble communicating with her and she thought maybe she had a TIA. I have a low suspicion for this the patient's NIH is 0. She has no risk factors for stroke. Her CT of the brain is negative. Orthostatic vital signs are also negative. I have no acute findings that would warrant admission. I counseled her on this. I will have her follow- up with her PCP on an outpatient basis. It is possible she may need another Holter monitor. Patient stable for discharge. Impression: 1. Palpitations 2. Near-syncope Lab Data Labs: Laboratory Results - last 24 hr 06/05/21 06/05/21 06/05/21 20:53 21:00 21:00 WBC 8.8 RBC 4.24 Hgb 13.2 Hct 39.1 MCV 92.2 MCH 31.1 MCHC 33.8 RDW Std Deviation 42.1 RDW Coeff of Sander 12.3 Plt Count 254 MPV 10.4 Immature Gran % (Auto) 0.200 Neut % (Auto) 63.0 Lymph % (Auto) 26.4 [place] % (Auto) 8.4 Eos % (Auto) 1.7 Baso % (Auto) 0.3 Absolute Neuts (auto) 5.6 Absolute Lymphs (auto) 2.33 Nucleated RBC % 0 Sodium 142 Potassium 3.3 L Chloride 109 H Carbon Dioxide 26.0 Anion Gap 7 BUN 12 Creatinine 0.72 Estim Creat Clear Calc 87.85 Est GFR (MDRD) Af Amer 111 Est GFR (MDRD) Non-Af 92 BUN/Creatinine Ratio 16.6 Glucose 76 Calcium 8.9 Total Bilirubin 0.10 L AST 13 L ALT 16 Alkaline Phosphatase 81 Troponin I High Sens 4 Total Protein 7.2 Albumin 3.7 Globulin 3.5 Albumin/Globulin Ratio 1.1 Urine Color Yellow Urine Clarity Clear Urine pH 5.0 Ur Specific [place] 1.020 Urine Protein Negative Urine Glucose (UA) Normal Urine Ketones Negative Urine Occult Blood Negative Urine Nitrite Negative Urine Bilirubin Negative Urine Urobilinogen Normal Ur Leukocyte Esterase Negative Urine RBC 0 SEEN Urine WBC 0 SEEN Ur Squamous Epith Cells 0-5 SEEN Urine Bacteria 0 SEEN Urine Mucus 0 SEEN Radiography Diagnostic Testing: Clinical Impression(s) from Imaging Studies Brain CT 06/05/21 20:37 IMPRESSION: Normal unenhanced CT scan of the brain. No major interval change. Electronically Signed: Jeff Murray DO at 22:06 EST Tel [phone], Service support , Chest X-Ray 06/05/21 20:37 IMPRESSION: No acute cardiopulmonary disease or major interval change. Electronically Signed: Jeff Murray DO at 21:36 EST Tel [phone], Service support , Discharge Plan Triage Chief Complaint: General Illness ED Provider: Ar Nash Dx/Rx/DC Orders Instructions: ED Palpitations, ED Near-Fainting, Uncertain Cause Prescriptions: No Action multivitamin 1 EACH tablet 1 ea PO DAILY RF: 0 L.acidoph, paracasei,B. lactis 1 EACH capsule 1 ea PO DAILY RF: 0 famotidine 40 MG tablet 40 mg PO DAILY PRN PRN (Reason: Heartburn) RF: 0 ibuprofen 800 MG tablet 800 mg PO TID PRN PRN (Reason: Pain) Qty: 60 RF: 1 oxycodone 5 mg tablet 5 mg PO Q6H PRN PRN (Reason: Pain Or Fever) RF: 0 phenazopyridine 200 MG tablet 200 mg PO TID Qty: 10 RF: 0 metronidazole 500 MG tablet 500 mg PO Q6H Qty: 40 RF: 0 ciprofloxacin HCl 500 MG tablet 500 mg PO BID Qty: 20 RF: 0 docusate sodium 100 MG capsule 100 mg PO DAILY Qty: 20 RF: 0 ondansetron 4 MG tablet 4 mg PO Q8H PRN PRN (Reason: Nausea) Qty: 10 RF: 0 naproxen 500 MG tablet 500 mg PO BID Qty: 14 RF: 0 fluconazole 150 MG tablet 150 mg PO X1 Qty: 1 RF: 0 Primary Care Provider: Chris Ritchie Referrals: Chris Ritchie MD [Primary Care Provider] - Disposition Disposition: Home, Self Care
[2021-06-05 20:57] LABS: Bacteria 0 SEEN /hpf (None Seen); Mucous, Urine 0 SEEN /hpf (<or=2+); Red Blood Cells-Urine 0 SEEN /hpf (0-5); White Blood Cells 0 SEEN /hpf (0-5)
[2021-06-05 21:05] LABS: Color, Urine Yellow (Yellow); Glucose, Dipstick Normal (Normal); Ketone-Dipstick Negative (Negative); Leukocyte Esterase-Dipstick Negative /ul (Negative); Nitrite-Dipstick Negative (Negative); Occult Blood-Urine Negative /ul (Negative); Protein-Dipstick Negative (Negative); Urine Bilirubin Dipstick Negative (Negative); Urine Clarity Clear (Clear); Urine Urobilinogen Normal (Normal)
[2021-06-05 21:21] LABS: Squamous Epithelial Cells - UA 0-5 SEEN /hpf (5-10)
[2021-06-05 21:23] LABS: Absolute Lymphocyte Count 2.33 X10^3/uL (0.83-4.51); Absolute Neutrophil Count 5.6 X10^3/uL (2.0-7.7); Basophil# 0.03 X10^3/uL; Basophil% 0.3 % (0-1); Eosinophil# 0.15 X10^3/uL; Eosinophils% 1.7 % (0-5); Hematocrit 39.1 % (37-47); Hemoglobin 13.2 g/dL (12.0-15.0); Lymphocyte # 2.33 X10^3/ul (0.83-4.51); Lymphocyte % 26.4 % (19-41); Mean Corp Hgb Conc 33.8 g/dL (32-36); Mean Corpuscular Hgb 31.1 pg (27.0-32.0); Mean Corpuscular Volume 92.2 fL (81-99); Mean Platelet Vol. 10.4 fl (6.2-12.0); Monocyte# 0.74 X10^3/uL; Monocyte% 8.4 % (0-10); NRBC Flagged by Analyzer 0 % (0-5); Neutrophil # 5.55 X10^3/uL (2.7-7.7); Platelet Count 254 K/mm3 (150-450); RBC Distribution Width CV 12.3 % (11.6-14.6); RBC Distribution Width SD 42.1 fl (35.1-43.9); Red Blood Count 4.24 M/mm3 (4.2-5.4); White Blood Count 8.8 K/mm3 (4.4-11.0)
[2021-06-05 21:31] LABS: ALB/GLOB Ratio 1.1 RATIO (0.9-2.4); AST(SGOT) 13 U/L (15-37); Alanine Aminotransfer ALT/SGPT 16 U/L (13-56); Albumin, Serum 3.7 g/dL (3.2-5.0); Alkaline Phosphatase 81 U/L (45-117); Anion Gap 7 (5-15); BUN 12 mg/dL (7-18); BUN/Creat Ratio 16.6 RATIO (10-20); Calcium,Total 8.9 mg/dL (8.5-10.1); Chloride 109 mmol/L (98-107); Creatinine, Serum 0.72 mg/dL (0.55-1.02); EST Glomerular Filtration Rate 92 mL/min (>60); Est Glom Filt Rate - Afr Amer 111 mL/min (>60); Estimated Creatinine Clearance 87.85 ml/min; Globulin 3.5 g/dL (2.2-4.2); Glucose 76 mg/dL (74-106); Potassium 3.3 mmol/L (3.5-5.1); Protein, Total 7.2 g/dL (6.4-8.2); Sodium Level 142 mmol/L (136-145); Troponin-I HS 4 pg/mL (3.0-54.0)
[2021-06-05 21:46] VITALS: BP 126/86; PULSE 81; RESP 16; O2SAT 97
[2021-06-05 21:48] VITALS: BP 124/79; BP 128/88; BP 137/77; PULSE 71; PULSE 74; PULSE 78
== END 2021-06-05 22:42 | disposition home or self-care (01) ==
PROVIDERS: Emergency Provider Student in an Organized Health Care Education/Training Program; PCP Family Medicine
DX: R55 Syncope and collapse (principal); R00.2 Palpitations; F41.9 Anxiety disorder, unspecified; F43.10 Post-traumatic stress disorder, unspecified; Z79.899 Other long term (current) drug therapy; Z87.891 Personal history of nicotine dependence
CPT/HCPCS: 70450; 71045; 80053; 81001; 84484; 85025; 93005; 99283; A4216

== ENCOUNTER → 2021-06-09 11:20 | Outpatient (CLI) | payer MEDICAID, SELFPAY ==
[2021-06-09 12:31] LABS: Hematocrit 40.3 % (37-47); Hemoglobin 13.5 g/dL (12.0-15.0); Mean Corp Hgb Conc 33.5 g/dL (32-36); Mean Corpuscular Hgb 30.5 pg (27.0-32.0); Mean Corpuscular Volume 91.2 fL (81-99); Mean Platelet Vol. 10.4 fl (6.2-12.0); Platelet Count 266 K/mm3 (150-450); RBC Distribution Width CV 12.2 % (11.6-14.6); RBC Distribution Width SD 40.9 fl (35.1-43.9); Red Blood Count 4.42 M/mm3 (4.2-5.4); White Blood Count 7.6 K/mm3 (4.4-11.0)
[2021-06-09 13:16] LABS: Anion Gap 5 (5-15); BUN 9 mg/dL (7-18); Calcium,Total 9.1 mg/dL (8.5-10.1); Chloride 106 mmol/L (98-107); Creatinine, Serum 0.64 mg/dL (0.55-1.02); EST Glomerular Filtration Rate 105 mL/min (>60); Est Glom Filt Rate - Afr Amer 127 mL/min (>60); Glucose 90 mg/dL (74-106); Potassium 3.9 mmol/L (3.5-5.1); Sodium Level 140 mmol/L (136-145); Thyroid Stim Hormone (TSH) 1.21 uIU/mL (0.358-3.74)
== END ==
PROVIDERS: PCP Family Medicine; Visit Provider Nurse Practitioner Family
DX: R00.2 Palpitations (principal); Z13.29 Encounter for screening for other suspected endocrine disorder
CPT/HCPCS: 36415; 80048; 84443; 85027

== ENCOUNTER 2021-06-17 13:20 | Outpatient (RCR) | payer MEDICAID, SELFPAY ==
--- NOTE | 2021-06-17 14:38 | HP.PTEVAL_ITS ---
Patient's Visit Information ALON FAIRCHILD is a 46 year old F referred to Physical Therapy by Dr. Dorita Vargas MD with a diagnosis of BACK PAIN AND LEG PAIN. Date of Evaluation: 06/17/21 Physical Therapist: Jeremy Ahn PT, Cert MDT, OCS - Visit Plan Frequency: 2x /Week Duration: 4 Weeks Plan: PT INETERVENTIONS POSTURAL EX'S, DLS ,MODALTIES ,HEP AND LE FLEXABILITY AND STRENGTHNEING - Subjective This 46 y/o female presents to physical therapy with lumbar pain and leg pain. Patient has had back and leg pain many years . Most recently, no reason or etiology of pain. Seen Dr recommended PT. Location, symmetrical lumbar and thoracic pain with occasional symptoms in right leg . Aggravating factors standing , bending ,lifting, and walking which affects housework tasks and ADLS'. Alleviating factors rest and rest. Patient sees pain management recommended PT and wants to MRI. Dr Mcelroy tramadol and muscle relaxer. C/O paresthesia/tingling. Bowel/bladder -. Coughing/sneezing +. Patient pain affects sleeping. Patient seen pelvic issues by PT in [place]. No abnormal night pain. Patient has had prior PT which didnt help. Patient also has had trauma in past. Patient pain affects QOL and housework tasks .PMH: fibromyalgia, connective tissue disorder, mass cell activation disorder, FX SACRAL. SOCIAL: 6 kids. VOCATION: HOME - Pain Bilateral Back Pain Intensity (Out of 10): 8 Pain Intensity Range: 10 - Objective POSTURE: mild forward posture. GAIT: reciprocal pattern. NEURO: denies paresthesia /tingling , REFLEXES L3-4,L4-5 ,L5 S1 1/3. SYMTTRIES: align. PALAPTION: tender LS/SI. LUMBAR ROM: flexion mod loss pain, extension mod/severe loss, side glides min loss. FLEXABLITY: hams mild tight - Balance/Special Test Scores Oswestry Low Back Score: 36 - Goals Goal 1:: Patient to be I with HEP for back pain Goal Time Frame: 4-6 Weeks Goal 2:: Improve posture /body mechanics for ADLS' Goal Time Frame: 4-6 Weeks Goal 3:: Patient to demonstrate 50% improvement with reduction of back pain Goal Time Frame: 4-6 Weeks Goal 4:: Patient to improve lumbar ROM for function of recovery Goal Time Frame: 4-6 Weeks Goal 5:: Patient to improve back owestry score by 5 points or to improve QOL - Rehabilitation Potential Physical Therapy Diagnosis: Patient has lumbar pain with symptoms worse with position, test movements ,weakness in legs which impairs housework tasks and ADL'S thus benefit from skilled PT Rehabilitation Potential: Good - Anticipated Interventions Patient/Client Instruction: Educate patient on: Condition, Plan of Care For the Purpose of:: To decrease pain, To increase ROM, To improve muscle performance and motor function, To improve ability to perform ADL's, To increase tolerance to activity/condition/position, To improve ability of physical actions for home/community/work/leisure, To improve health of tissue, To decrease soft tissue restriction, To increase flexibility/ROM, To reduce risk of recurrence, To prevent re-injury Therapeutic Exercise to Include: Strength training, Body mechanics, Postural training, Flexibilty training, Active ROM, Dynamic Lumbar Stabilization For the Purpose of:: To decrease pain, To increase ROM, To improve muscle performance and motor function, To improve ability to perform ADL's, To increase tolerance to activity/condition/position, To improve ability of physical actions for home/community/work/leisure, To improve health of tissue, To decrease soft tissue restriction, To increase flexibility/ROM TENS: Yes IF ES: Yes Cryotherapy (ice pack, ice massage): Yes Thermo therapy (hot pack): Yes Ultrasound (thermal/non thermal): Yes For the Purpose of:: To decrease pain, To increase ROM, To improve nutrient delivery to tissue, To increase oxygenation perfusion, To improve health of tissue, To decrease soft tissue restriction Thank you for the opportunity to evaluate your patient. For Medicare and Medicare HMO plans, please review the plan of care and approve it. It will need to be FAXED BACK to us at [phone] for Medicare purposes. For Medicare only, by signing this I certify the plan of care. Please let me know if there are questions or concerns regarding this plan of care. Physician Signature: Date:
--- NOTE | 2021-09-03 14:40 | HP.PT.NRP ---
ALON FAIRCHILD was seen in my office for initial evaluation on 06/17/21. The following Plan of Care was established for this patient: Initial Frequency: 2x /Week Initial Duration: 4 Weeks Patient/Client Instruction: Educate patient on: Condition, Plan of Care For the Purpose of:: To decrease pain, To increase ROM, To improve muscle performance and motor function, To improve ability to perform ADL's, To increase tolerance to activity/condition/position, To improve ability of physical actions for home/community/work/leisure, To improve health of tissue, To decrease soft tissue restriction, To increase flexibility/ROM, To reduce risk of recurrence, To prevent re-injury Therapeutic Exercise to Include: Strength training, Body mechanics, Postural training, Flexibilty training, Active ROM, Dynamic Lumbar Stabilization For the Purpose of:: To decrease pain, To increase ROM, To improve muscle performance and motor function, To improve ability to perform ADL's, To increase tolerance to activity/condition/position, To improve ability of physical actions for home/community/work/leisure, To improve health of tissue, To decrease soft tissue restriction, To increase flexibility/ROM TENS: Yes IF ES: Yes Cryotherapy (ice pack, ice massage): Yes Thermo therapy (hot pack): Yes Ultrasound (thermal/non thermal): Yes For the Purpose of:: To decrease pain, To increase ROM, To improve nutrient delivery to tissue, To increase oxygenation perfusion, To improve health of tissue, To decrease soft tissue restriction This patient was last seen in our office . Pertinent comments regarding their Physical therapy will appear below: Patient seen for PT EVAL for back pain and HEP but did not return to PT At this point I will be discontinuing this patient from physical therapy. I would be happy to see this patient again in the future if found appropriate by the physician. Thank you! Jeremy Ahn, PT, Cert MDT, OCS Balance/Gait/Functional tests - Balance/Special Test Scores Oswestry Low Back Score: 36
== END 2021-06-17 19:00 | disposition home or self-care (01) ==
LOC: PT 13:20
PROVIDERS: PCP Family Medicine; Referring Provider Anesthesiology Pain Medicine; Visit Provider Anesthesiology Pain Medicine
DX: M54.9 Dorsalgia, unspecified (principal); M79.606 Pain in leg, unspecified
CPT/HCPCS: 97162

== ENCOUNTER 2025-07-07 13:32 | Emergency (ER) | payer MEDICAID, SELFPAY ==
[2025-07-07 13:34] VITALS: BP 161/102; PULSE 89; RESP 16; TEMP 36.9; O2SAT 98; BMI 31.1
--- NOTE | 2025-07-07 14:25 | EKG12_ITS ---
Test Reason : Blood Pressure : */* mmHG Vent. Rate : 75 BPM Atrial Rate : 75 BPM P-R Int : 140 ms QRS Dur : 80 ms QT Int : 388 ms P-R-T Axes : 62 60 53 degrees QTcB Int : 433 ms Normal sinus rhythm Normal ECG Confirmed by Markie Singh ([id number]), writer editor KEVIN TUTTLE ([id number]) on 07/13/2025 7:14:27 AM Referred By: Confirmed By: Markie Singh
--- NOTE | 2025-07-07 14:25 | RAD_ITS ---
EXAM: XR Left Shoulder Complete, 2 or More Views CLINICAL INDICATION: PAIN, EHLOS DANLOS SYND TECHNIQUE: Two or more views of the left shoulder. COMPARISON: No relevant prior studies available. FINDINGS: BONES/JOINTS: Unremarkable. No acute fracture. No dislocation. SOFT TISSUES: Soft tissue swelling. RAD/Shoulder min 2 Views IMPRESSION: Soft tissue swelling. Reading Location: [id number]
--- OUTSIDE RECORDS SUMMARY | 2025-07-07 15:09 | XMS RPT_ITS | CCD ---
Author Organization [facility] Care Team Providers Care It Technical Specialist Name Role Phone CHARLENE ORANTES Unavailable Unavailable CHARLENE ORANTES Unavailable Unavailable NO REFERRING Unavailable Unavailable Unavailable Primary Care Provider RAUL Montes Attending Unavailable Allergies Allergy Classification Reported Allergen(s) Allergy Type Date of Onset Reaction(s) Facility (5 sources) Penicillins; Translations: [PENICILLINS] Propensity to adverse reactions (disorder) 09-24-19 07 Rash [facility] Repository (1 source) sertraline; Translations: [ZOLOFT] Drug Allergy [facility] Repository (4 sources) Sertraline; Translations: [SERTRALINE HCL] Drug Allergy 07-25-19 10 Mental Status Change [facility] Work Phone: (3 sources) Cefuroxime; Translations: [CEFUROXIME AXETIL] Drug Allergy 07-26-19 08 Vomiting [facility] Work Phone: (3 sources) Citalopram; Translations: [CITALOPRAM HYDROBROMIDE] Drug Allergy 02-02-20 07 Vomiting [facility] Work Phone: (3 sources) DULoxetine; Translations: [DULOXETINE] Drug Allergy 10-27-19 19 Unknown [facility] Work Phone: (3 sources) gabapentin; Translations: [GABAPENTIN] Drug Allergy 02-29-20 15 Other: See Comments [facility] Work Phone: (3 sources) PARoxetine; Translations: [PAROXETINE HCL] Drug Allergy 10-27-19 19 Unknown [facility] Work Phone: (3 sources) pregabalin; Translations: [PREGABALIN] Drug Allergy 10-27-19 19 Unknown [facility] Work Phone: (3 sources) venlafaxine; Translations: [VENLAFAXINE ANALOGUES] Drug Allergy 10-27-19 Unknown [facility] Work Phone: (1 source) Tricyclic Compounds Drug Intolerance 10-27-19 Unknown [facility] Work Phone:
[2025-07-07 15:40] VITALS: BP 149/92; PULSE 69; RESP 18; O2SAT 98
[2025-07-07 15:41] VITALS: BP 149/92; PULSE 69; RESP 18; TEMP -7.7; TEMP 18; O2SAT 98
--- NOTE | 2025-07-07 15:41 | EX.ED.GENINJ ---
HPI History of Present Illness Chief Complaint: Other, Pain/Inj Narrative Narrative: Pt is a 50-year-old female who is presenting to the ER today with chief complaint of acute on chronic left-sided neck pain, cervical pain, cervical radiculopathy, shoulder pain. Patient has history of Karen-Danlos syndrome. Patient has been doing home remedies, home homeopathic treatments for years. Patient did see a surgery specialist many years ago, was presented treatment plan and she never followed back up. Patient has a neighbor who also has Karen-Danlos syndrome. Patient has been treating symptoms at home over the years. For the past 2 months patient has been having more left shoulder pain. She currently has no chest heaviness, shortness of breath, tightness. Patient is here with . Patient's business currently is no following with . Patient is holding her left arm, she has not been using a ceiling significant to cause frozen shoulder syndrome. Patient chief concern is left shoulder dislocation. Patient believes that she is dislocated on relocated her left shoulder many times in the past. Patient currently not seeing orthopedic surgeon. Patient is right-hand dominant. Patient has been using heat for the past couple days to the left side of her neck and shoulder, and her symptoms are much worse. Patient other chief concern is paralysis of her left upper extremity someday secondary to either a steal syndrome. She has no strokelike signs or symptoms. She has no signs of paralysis. REVIEW OF SYSTEMS: Unless otherwise stated in this report the patient's positive and negative responses for review of systems for constitutional, eyes, ENT, cardiovascular, respiratory, gastrointestinal, neurological, , musculoskeletal, and integument systems and related systems to the presenting problem are either stated in the history of present illness or were not pertinent or were negative for the symptoms and/or complaints related to the presenting medical problem. Nurse's notes and vital signs reviewed. The patient is not hypoxic. Vital signs reviewed and patient is not hypoxic. General: The patient appears in moderate distress secondary to left-sided neck pain, left shoulder pain and discomfort . Patient is resting uncomfortably on cart. Not toxic, lethargic, or listless. Skin: Warm, dry, no pallor noted. There is no rash noted. Head: Normocephalic, atraumatic patient has no midline cervical tenderness palpation. Patient has moderate left paracervical tenderness to palpation., Patient does have active range of motion of cervical spine with mild to moderate pain, however no meningeal signs or symptoms, no signs of nuchal rigidity. Patient's moderate tender points to left paracervical soft tissue, left upper cervical trapezius muscle and left superior lateral posterior deltoid Eye: Normal conjunctiva, no drainage, EOMI. PERRL. Ears, Nose, Mouth, and Throat: oral mucosa is moist. Nares patent. Mouth without vesicles. Cardiovascular: Regular Rate and Rhythm, no murmurs, gallops, or rubs Respiratory: Patient is in no distress, no accessory muscle use, lungs are clear to auscultation, no wheezing, rales or rhonchi Back: non-tender, no CVA tenderness bilaterally to percussion. NO CTLS midline or paraspinal tenderness to palpation. GI: Soft, no tenderness to palpation, no masses appreciated. No rebound, guarding, or rigidity noted. Musculoskeletal: The patient has full range of motion of all extremities and joints with no difficulty except her left shoulder. Patient does have mild to severe pain with flexion extension of left shoulder, limited passive range of motion but I do not feel sulcus sign to anterior aspect of left shoulder, it does not appear to be dislocated. Patient can abduct left shoulder to approximately 45 degrees with moderate pain. No pain to the clavicle, moderate tenderness palpation to left AC joint.. Patient has no motor, no sensory deficits. Neurological: A&O x4, normal speech, no focal neurological deficits. Psychiatric: Cooperative [facility] Medical History (Updated 07/07/25 @ 15:[address] Darinel White, DO) Hypermobile Karen-Danlos syndrome Home Medications ?Medication ?Instructions ?Recorded ?Last Taken ?Type L.acidoph,paracasei,B.animalis 10 1 ea PO DAILY 01/31/20 Unknown History billion cell capsule famotidine 40 mg tablet 40 mg PO DAILY PRN PRN Heartburn 01/31/20 Unknown History multivitamin 1 ea PO DAILY 01/31/20 Unknown History ibuprofen 800 mg tablet 800 mg PO TID PRN PRN Pain #60 tabs 02/08/20 Unknown Rx ciprofloxacin HCl 500 mg tablet 500 mg PO BID #20 tabs 02/17/20 Unknown Rx docusate sodium 100 mg capsule 100 mg PO DAILY #20 caps 02/17/20 Unknown Rx fluconazole 150 mg tablet 150 mg PO X1 #1 TAB 02/17/20 Unknown Rx metronidazole 500 mg tablet 500 mg PO Q6H #40 tabs 02/17/20 Unknown Rx naproxen 500 mg tablet 500 mg PO BID #14 tabs 02/17/20 Unknown Rx ondansetron 4 mg disintegrating 4 mg PO Q8H PRN PRN Nausea #10 tabs 02/17/20 Unknown Rx tablet oxycodone 5 mg tablet 5 mg PO Q6H PRN PRN Pain Or Fever 02/17/20 Unknown History phenazopyridine 200 mg tablet 200 mg PO TID #10 tabs 02/17/20 Unknown Rx hydrocodone-acetaminophen 5-325mg 1 tab PO Q4H PRN PRN Pain 2 days 07/07/25 Unknown Rx 5mg-325mg #12 TABLETS methocarbamol 750 mg tablet 500 mg (0.6667 x 750 mg) PO Q8H 07/07/25 Unknown Rx PRN pain #15 tabs Allergy/AdvReac Type Severity Reaction Status Date / Time Penicillins Allergy Anaphylaxis Verified 07/07/25 13:36 sertraline HCl (From Zoloft) AdvReac HALLUCINATIONS Verified 07/07/25 13:36 AND VOMITING Surgical History H/O: hysterectomy Social History Smoking Status: Former smoker EXAM Physical Exam Const Vital Signs: 07/07/25 13:34 07/07/25 14:05 07/07/25 15:40 Temperature 98.4 F Temperature Source Oral Pulse Rate 89 69 Respiratory Rate 16 18 Respiratory Pattern Normal Blood Pressure 161/102 H 149/92 H Blood Pressure Mean 121 111 Pulse Ox 98 98 Oxygen Delivery Method Room Air Room Air 07/07/25 15:41 Temperature 18 F L Temperature Source Pulse Rate 69 Respiratory Rate 18 Respiratory Pattern Blood Pressure 149/92 H Blood Pressure Mean 111 Pulse Ox 98 Oxygen Delivery Method MDM MDM MDM Narrative Medical decision making narrative: Patient seen and examined: Ice, EKG, Percocet, Robaxin, shoulder x-ray Differential diagnosis includes but is not limited to: Paracervical sprain/strain, left shoulder sprain/strain, rotator cuff injury; subluxation, dislocation of left shoulder, muscle skeletal pain Radiological studies: Left shoulder x-ray shows no acute fracture, dislocation, acute abnormality, no subluxation, no dislocation. Reevaluation: EKG interpretation. Normal sinus rhythm at 75 beats minute. Normal axis deviation. No acute ST elevation, no acute ectopy. QTc of 433. Social barriers to healthcare: There are no food insecurities, there is no issue with transportation, there are no insurance barriers Disposition: Education was done on using ice and stretching. Patient understands importance of following back up with orthopedic surgery, surgery specialist. Patient to follow-up with PCP as well. Patient was sent home with prescription for [employer] and Robaxin. Patient understands importance of using ice, stretching. We did discuss rotator cuff stretching type exercises that can be done at home as well. Patient understands not to use shoulder sling for lengthy amount of time to help prevent any type of adhesive capsulitis which she does not have at this time. Patient stated the Robaxin given in the ER along with the ice has helped with the pain. Patient was educated on using ice and stretching for the next 3 to 5 days and no heat. Patient and has been understanding this, no question of discharge. Radiography Diagnostic Testing: Clinical Impression(s) from Imaging Studies Shoulder X-Ray 07/07/25 14:25 IMPRESSION: Soft tissue swelling. Reading Location: [facility] Discharge Plan Triage Chief Complaint: Other, Pain/Inj ED Provider: Darinel White Dx/Rx/DC Orders Clinical Impression: Chronic pain in left shoulder, Cervical radiculopathy Instructions: Karen-Danlos Syndrome, Exercises, Rotator Cuff Injury, Understanding Lumbar Radiculopathy, Sciatica Exercise, ED Radiculopathy, Cervical, ED Rotator Cuff Tear, ED Shoulder Impingement Syndrome Prescriptions: New hydrocodone-acetaminophen 5-325 mg tablet 1 tab PO Q4H PRN PRN (Reason: Pain) 2 Days Qty: 12 0RF methocarbamol 750 mg tablet 500 mg PO Q8H PRN (Reason: pain) Qty: 15 0RF No Action multivitamin 1 EACH tablet 1 ea PO DAILY L.acidoph,paracasei,B.animalis 1 EACH capsule 1 ea PO DAILY famotidine 40 MG tablet 40 mg PO DAILY PRN PRN (Reason: Heartburn) ibuprofen 800 MG tablet 800 mg PO TID PRN PRN (Reason: Pain) Qty: 60 1RF oxycodone 5 mg tablet 5 mg PO Q6H PRN PRN (Reason: Pain Or Fever) Patient Comments: TAKE 1 TABLET BY MOUTH EVERY 6 HOURS NEEDED FOR SEVERE PAIN FOR UP TO 7 DAYS phenazopyridine 200 MG tablet 200 mg PO TID Qty: 10 0RF metronidazole 500 MG tablet 500 mg PO Q6H Qty: 40 0RF ciprofloxacin HCl 500 MG tablet 500 mg PO BID Qty: 20 0RF docusate sodium 100 MG capsule 100 mg PO DAILY Qty: 20 0RF ondansetron 4 MG tablet 4 mg PO Q8H PRN PRN (Reason: Nausea) Qty: 10 0RF naproxen 500 MG tablet 500 mg PO BID Qty: 14 0RF fluconazole 150 MG tablet 150 mg PO X1 Qty: 1 0RF Rx Instructions: Take when you complete your course of antibiotics. Primary Care Provider: Care Physician,No Primary Referrals: Care Physician,No Primary [Primary Care Provider, Medical] Activity Restrictions/Additional Instructions: Use ice 20 minutes on, 10 minutes off for the next 5 to 7 days, no heat for the next 5 to 7 days. Education on cervical and lumbar radiculopathy were given on discharge paperwork were discussed at bedside as well. Use arm sling sparingly at home to help prevent frozen shoulder You may alternate Tylenol and either Motrin, Advil, or ibuprofen every 4 hours for pain or fever. You may substitute [employer] for Tylenol if the pain is severe. However, do not take [employer] and Tylenol together, you may accidentally take too much Tylenol in 1 day. The maximum dose of Tylenol daily is 3000 mg. The maximum dose of either Motrin, Advil, or ibuprofen is 2400 mg daily. Take medication with food or drink to help buffer the medication in your stomach. Follow-up with PCP and administrative program specialist for further treatment and care. You will need to follow-up with surgery specialist as well to help with Ehler's Danlos syndrome Print Language: Estonian Disposition Disposition: Home, Self Care Discharge Date/Time: 07/07/25 15:42
== END 2025-07-07 15:42 | disposition home or self-care (01) ==
PROVIDERS: Emergency Provider Emergency Medicine; Visit Provider Emergency Medicine
DX: M54.12 Radiculopathy, cervical region (principal); G89.29 Other chronic pain; Z87.891 Personal history of nicotine dependence; M25.512 Pain in left shoulder; Z90.710 Acquired absence of both cervix and uterus
CPT/HCPCS: 73030; 93005; 99282